=== PATIENT | female | born 1935 | race Caucasian/White ===

== ENCOUNTER 2016-07-01 11:35 | Inpatient (IN) | payer MEDICARE, BC ==
--- NOTE | ~2016-07-01 | HP ---
Unit #: [id number] #: [id number] Patient: KRISTI PARKER [id number] [place], [place] [address] [id number] I MR#: [id number] NAME: KRISTI PARKER. ROOM: 99771 Age: 80 Sex: F Admission Date: 07/01/2016 : 1935 Attending Physician: Wendy Mendoza M.D. Primary Care Physician: Esther Gross M.D. HISTORY AND PHYSICAL CHIEF COMPLAINT Syncope. HISTORY OF PRESENT ILLNESS The patient is a 80-year-old female with past medical history of hypertension, hyperlipidemia, coronary artery disease, CHF, diabetes, depression, hypothyroidism, renal artery stenosis, dementia, who presented to the emergency department for evaluation of the above. History is obtained from chart review and discussion with ER staff as well as from the patient's who is at the bedside. Additionally, the patient is able to answer some questions. She does have dementia at baseline. The patient was apparently in her usual state of health until the morning of admission when she had a syncopal episode. Her states that she was with her niece, who is her caregiver at times. She had been up and had breakfast, she was using the bathroom. She was found on the floor, she had had loose stool. She was found unresponsive. EMS was called. Blood pressure was initially in the 80s systolic. She was brought to the emergency department for further evaluation. She did receive IV fluids prior to arrival per my discussion with ER staff. Upon arrival in the emergency department, the patient's pulse was 56 and blood pressure was 114/74. A chest x-ray was done and showed nothing acute. Laboratory notable for findings concerning for urinary tract infection. BUN 84 and creatinine 3.6. She is being admitted to [facility] for evaluation and further treatment. PAST MEDICAL HISTORY 1. Admission to [facility] 06/06/2015 for sepsis secondary to E coli urinary tract infection. 2. Congestive heart failure. The patient had an echocardiogram 08/09/2009 that showed an ejection fraction of 20% to 25%. She sees Dr. Ferguson. 3. Coronary artery disease. 4. Hypertension. 5. Hyperlipidemia. 6. Diabetes. 7. Urinary incontinence. 8. Depression. 9. Hypothyroidism. 10. Left renal artery stenosis. PAST SURGICAL HISTORY 1. Appendectomy. 2. Cholecystectomy. Unit #: [id number] #: [id number] Patient: KRISTI PARKER 3. Hysterectomy. 4. Tonsillectomy. 5. Cardiac catheterization 08/10/2009 showed 85% to 90% stenosis of the mid left anterior descending as well as left renal artery 70% stenosis, right renal artery 20% stenosis. ALLERGIES Sulfa. HOME MEDICATIONS Include: 1. Aspirin. 2. Carvedilol. 3. Digoxin. 4. Fenofibrate. 5. Iron. 6. Lasix. 7. Humalog. 8. Hydralazine. 9. Potassium. 10. Levemir. 11. Levothyroxine. 12. Melatonin. 13. Lisinopril. 14. Metformin. 15. Paxil. 16. Simvastatin. Home medications will need to be reviewed and verified. SOCIAL HISTORY The patient lives with her . There is no tobacco or alcohol use. She ambulates with a cane. Code status is a DO NOT RESUSCITATE. FAMILY HISTORY Notable for both parents having coronary artery disease. REVIEW OF SYSTEMS A complete review of systems is negative except as indicated in the HPI. PHYSICAL EXAMINATION VITAL SIGNS: Temperature 97.5, pulse 56, respirations 16, blood pressure 114/44, oxygen saturation 99% on room air. GENERAL: The patient is a female who is awake and alert. HEENT: Head is atraumatic. Mucous membranes are dry. NECK: Supple. Trachea is midline. LUNGS: Clear to auscultation bilaterally with no increased work of breathing. HEART: Regular rate and rhythm. ABDOMEN: Soft, nontender. Bowel sounds present in all four quadrants. EXTREMITIES: Nontender with no pedal edema. NEUROLOGIC: Patient is awake and alert. She is oriented to person and place. She is at baseline per family. She is moving all extremities. PSYCHIATRIC: Patient has a flat affect. SKIN: Generally pale. DIAGNOSTIC STUDIES LABORATORY: Troponin less than 0.05. Complete blood count notable for Unit #: [id number] #: [id number] Patient: KRISTI PARKER hemoglobin 10.7, hematocrit 32.5. INR 1.2. Basic metabolic panel notable for BUN 84, creatinine 3.6. Urinalysis notable for 2+ leukocyte esterase, 10-25 wbc's, 4+ bacteria, occasional squamous cells. IMAGING: Chest x-ray shows no acute abnormality. CARDIOVASCULAR: EKG shows sinus bradycardia with premature atrial complexes and a rate of 56 beats per minute. ASSESSMENT The patient is a 80-year-old female with: 1. Syncope. 2. Acute kidney injury. The patient's creatinine was 0.7 on 06/06/2015, it is 3.6 today. The patient is on several medications that could be contributing including lisinopril, Lasix, and metformin. Additionally, she has been having loose stool intermittently for the past five to six months. She has also had decreased appetite which could be contributing as well. 3. Diarrhea. 4. Urinary tract infection. 5. Chronic anemia. 6. Hypertension. 7. Hyperlipidemia. 8. Coronary artery disease. 9. Congestive heart failure with ejection fraction as noted above. 10. Diabetes. 11. Depression. 12. Hypothyroidism. 13. History of left renal artery stenosis. 14. Dementia. PLAN 1. Admit to intermediate level. 2. Normal saline at 75 mL per hour. 3. Monitor blood pressure closely. 4. Serial cardiac enzymes. 5. 2D echo for further evaluation of syncope. 6. Fall precautions with orthostatics each shift. 7. Healthy heart consistent carb diet if passes bedside swallow. 8. Urine sodium, creatinine and eosinophils. 9. Renal ultrasound. 10. Strict I's and O's. 11. Check CPK. 12. Consult Dr. Quiroz regarding acute kidney injury. 13. Hold lisinopril, Lasix and metformin. 14. Stool studies for ova and parasites, C difficile, culture and sensitivity. 15. Blood cultures x2. 16. Urine culture and sensitivity on urine in the lab. 17. Rocephin 1 gram IV daily pending results of urine culture. 18. Hemoglobin A1c. 19. Low-dose sliding scale insulin with Accu-Cheks. 20. Check TSH. 21. Check digoxin level. 22. Neuro checks. 23. SCDs for DVT prophylaxis. 24. Repeat labs in the morning. 25. Additional workup and consultants based on above. Unit #: [id number] #: [id number] Patient: KRISTI PARKER Dictated by Wendy Mendoza M.D. JEFF/ricardo TD: 07/01/2016 16:08 JOB #: [id number] HISTORY AND PHYSICAL Page 1 of 1 X Wendy Mendoza MD HISTORY AND PHYSICAL
--- NOTE | ~2016-07-01 | CO ---
Unit #: [id number] #: [id number] Patient: KRISTI PARKER [id number] [facility]. [place], [place] [address] [id number] I MR#: [id number] NAME: KRISTI PARKER. ROOM: 302 Age: 80 Sex: F Admission Date: 07/01/2016 : 1935 Attending Physician: Ashleigh Jacobson M.D. Primary Care Physician: Esther Gross M.D. Consultation Date: 07/01/2016 CONSULTATION REPORT REASON FOR CONSULTATION Acute kidney injury. HISTORY OF PRESENT ILLNESS Ms. Parker is a 80-year-old female whom we were asked to see today for acute kidney injury. Her admission creatinine was elevated at 3.6. According to family, patient has just not been doing well over the last few months and even worse over the past few days. She has been undergoing a dementia workup by Dr. Gross. More recently, over the last few days, her appetite has been poor, and she also has continued with some chronic loose stools. She is noted to be on an MIKIE inhibitor and a diuretic and has continued to be on these despite her poor appetite. Patient had a syncopal spell at home after apparently walking from one room into the kitchen. She was found to be kind of sprawled out on a kitchen chair but had not fallen. EMS was called, and her blood pressure was only in the 80s upon the EMS presentation there. She was transferred here to [facility] for further care. She is getting fluids and is now more awake and alert. She denies any chest discomfort or shortness of breath. No hematuria. She does not use any NSAIDs. There is no history of kidney stones. PAST MEDICAL HISTORY Her past medical history is significant for cardiomyopathy with an EF of 20%, hypertension, hyperlipidemia, diabetes, depression, dementia, hypothyroidism, left renal artery stenosis in the past, coronary artery disease with stenting, previous urinary tract infections. PAST SURGICAL HISTORY She has had an appendectomy, cholecystectomy, hysterectomy and tonsillectomy. HOME MEDS 1. Baby aspirin daily. 2. Coreg 25 mg twice a day. 3. Digoxin 125 mcg daily. 4. Aricept 5 mg at bedtime. 5. Fenofibrate 160 mg a day. 6. Ferrous sulfate daily. 7. Furosemide 40 mg a day. 8. Humalog 22 units subcu with meals. 9. Hydralazine 25 mg twice a day. 10. Klor-Con 20 mEq daily. 11. Levemir insulin 20 units in the morning, 20 units at bedtime. 12. Levothyroxine 125 mcg a day. Unit #: [id number] #: [id number] Patient: KRISTI PARKER 13. Zestril 40 mg a day. 14. Melatonin at bedtime. 15. Metformin 1,000 mg in the morning and 500 mg in the evening. 16. Paxil 20 mg a day. 17. Simvastatin 20 mg at bedtime. ALLERGIES Sulfa drugs. FAMILY HISTORY Family history is negative for any family history of kidney disease or dialysis. There is a family history of heart disease. SOCIAL HISTORY The patient is . She lives with family. No history of tobacco, alcohol or drug use. REVIEW OF SYSTEMS A complete 12-point review of systems was attempted but made difficult due to the patient's frailty and lethargy. Most of the questions were answered by family. They deny any recent complaints in her of headaches or fevers. No chills. No complaints of sore throat or earache. No chest pain. No palpitations. No cough or hemoptysis. No recent nausea or vomiting. No bright red blood per rectum or melena. No dysuria. No swelling issues. No rashes or itching. No flank pain. No night sweats or hot flashes. No intolerance to heat or cold. No bleeding issues. She does have generalized weakness and is walking with a walker at home. Unless otherwise indicated, the review of systems was not able to be obtained from this frail patient. PHYSICAL EXAMINATION VITAL SIGNS: The patient is afebrile. Pulse 64, respiratory rate 13, blood pressure 132/55. Again, blood pressure was reported to be in the 80s upon EMS arrival at home. GENERAL: This is a 80-year-old white female lying in bed who is arousable, currently in no acute distress. HEENT: Head is atraumatic, normocephalic. Eyes show pale conjunctiva, no scleral icterus. No nasal drainage or nosebleeds. Oropharynx is dry without thrush. NECK: Neck shows no rigidity. CARDIOVASCULAR: Heart is bradycardic and regular with a soft murmur present. No gallop or rub appreciated. RESPIRATORY: Lungs are clear anteriorly with no wheezing or rhonchi. Breathing is nonlabored. ABDOMEN: Abdomen is soft and nontender. Bowel sounds are present without masses. EXTREMITIES: No lower extremity clubbing, cyanosis or pitting edema. SKIN: Skin is dry without rashes. MUSCULOSKELETAL EXAM: No joint effusions noted. No CVA tenderness to palpation. NEUROLOGIC: Exam is nonfocal. She does have generalized weakness. LYMPHATIC EXAM: There is no neck cervical lymphadenopathy. PSYCHIATRIC EXAM: Mood does appear to be depressed with a flat affect. DIAGNOSTIC STUDIES LABS: CPK level was normal at 46. Digoxin level was slightly high at 3. Troponin was negative. UA showed numerous white blood cells with bacteria. Chemistry showed a sodium of 138, potassium 5, chloride 101, Unit #: [id number] #: [id number] Patient: KRISTI PARKER L bicarb 26, glucose 79, BUN 84, creatinine 3.6. INR was 1.2. CBC showed a white count of 9, hemoglobin 10.7, platelet count 266 with no peripheral eosinophilia. Prior creatinine to this one was 0.7 in May 2015. Previous urinalyses have mostly been negative for any significant blood or protein. IMAGING: Chest x-ray showed no edema or pneumonia. Distant CT scan of the abdomen in June 2011 - Kidneys were unremarkable at that time. ASSESSMENT AND PLAN 1. Acute kidney injury. This appears to be prerenal in nature from hypotension with her syncopal spell. She is also on a diuretic with poor intake and would have altered renal compensation on her MIKIE inhibitor. We will hold her Lasix and her lisinopril and continue hydration overnight. Ultrasound has been ordered. Hopefully, her kidney function will recover briskly and we will not need to pursue any dialysis. 2. Hypotension. Patient's blood pressure has already improved with fluid bolus, and we will continue fluids overnight. 3. Urinary tract infection. Rocephin has been started, and we will follow up final urine culture. 4. History of cardiomyopathy with an EF of 20%. Patient looks very well compensated, and we will hold her diuretic, as well as her MIKIE inhibitor, and monitor her volume status daily. 5. Chronic diarrhea. This may be contributing to her dehydration. 6. Dementia. 7. Diabetes. 8. History of coronary artery disease with stenting. 9. Digoxin toxicity. We will continue fluids, and hopefully, with improved kidney function, her digoxin will clear out over the next 24 hours. I will be stopping all potassium supplementation, and we will, of course, stop her digoxin. I would like thank Dr. Mendoza for this consult and the opportunity to participate in the evaluation and care of Ms. Parker. Dictated by... Chava Bernard Jr., [place]el[place]. VALENTINA/pola TD: 07/02/2016 08:43 JOB #: [id number] CONSULTATION REPORT Page 1 of 1 X Chava Bernard MD X CONSULTATION REPORT
--- NOTE | ~2016-07-01 | US77 ---
[facility] A Service of [facility] RADIOLOGY TEXT RESULTS PATIENT: KRISTI PARKER LOCATION: [facility] - : 37 UNIT #: [id number] AGE: [address]: Wendy Mendoza MD SEX: F ORDER DR: [id number] [facility] [address] [place], [place] [address] [id number] I MR#: [id number] Acc #: [id number] NAME: KRISTI PARKER : 1935 SEX: F STUDY DATE/TIME: 07/01/2016 16:49 UNIT: [address] ROOM: [facility] STUDY DESCRIPTION: US Kidney Bilateral Complete Attending Physician: Wendy Mendoza M.D. Ordering Physician: Wendy Mendoza M.D. Primary Care Physician: Esther Gross M.D. MEDICAL IMAGING REPORT This report is preliminary unless electronic signature is present EXAM Bilateral renal ultrasound. HISTORY Acute renal insufficiency. FINDINGS Ultrasound examination of both kidneys demonstrates no renal mass or hydronephrosis. No focal renal atrophy or perinephric fluid collection. The right kidney measures approximately 10.2 cm in length and the left kidney measures approximately 10.3 cm in length. Survey of the urinary bladder is unremarkable. IMPRESSION Normal ultrasound examination of both kidneys. Dictated by... Andrea Velez M.D. THIS IS AN ELECTRONICALLY VERIFIED REPORT Andrea Velez M.D. at 07/01/2016 11:16 PM LORRAINE/juan TD: 07/01/2016 22:20 JOB #: [id number] MEDICAL IMAGING REPORT Page 1 of 1 COPY
--- NOTE | ~2016-07-01 | CR72 ---
[facility] A Service of [facility] RADIOLOGY TEXT RESULTS PATIENT: KRISTI PARKER LOCATION: [facility] : 37 UNIT #: [id number] AGE: [address]: Queta Tapia MD SEX: F ORDER DR: [id number] [facility] [address] [place], [place] [address] [id number] MR#: [id number] Acc #: [id number] NAME: KRISTI PARKER : 1935 SEX: F STUDY DATE/TIME: 07/01/2016 UNIT: [facility] ROOM: STUDY DESCRIPTION: CR Chest Single View Portable Attending Physician: Queta Tapia M.D. Ordering Physician: Ed Brady Velazco M.D. Primary Care Physician: Esther Gross M.D. MEDICAL IMAGING REPORT This report is preliminary unless electronic signature is present EXAM Chest portable 07/01/2016 1217 hours HISTORY 80-year-old woman with history of hypertension complaining of syncope today. Weakness. COMPARISON Chest x-ray 06/03/2015 FINDINGS Portable upright chest demonstrates mild cardiomegaly decreased from 06/03/2015. The aorta is within normal limits. There is mild prominence of the pulmonary vasculature although the pulmonary arteries appeared decreased from 06/03/2015. There is mild elevation of the right hemidiaphragm unchanged. The lungs are clear and there are no effusions. IMPRESSION Heart size is at the upper limits of normal with mildly tortuous aorta. There is mild pulmonary vascular prominence without edema, pneumonia or effusion. The heart size and vascular changes are clearly improved from 06/03/2015. Dictated by... Maribell Xiong M.D. THIS IS AN ELECTRONICALLY VERIFIED REPORT Maribell Xiong M.D. at 07/01/2016 2:29 PM Meagan TD: 07/01/2016 13:44 [facility] A Service [facility] RADIOLOGY TEXT RESULTS PATIENT: KRISTI PARKER LOCATION: [facility] : 39 UNIT #: [id number] AGE: [address]: Queta Tapia MD SEX: F ORDER DR: KAUSHIK #: [id number] MEDICAL IMAGING REPORT Page 1 of 1 COPY
--- NOTE | ~2016-07-01 | EKG ---
PATIENT: KRISTI PARKER UNIT #: [id number] Ventricular Rate: 56 BPM Atrial Rate: 56 BPM P-R Interval: 184 ms QRS Duration: 152 ms Q-T Interval: 428 ms QTC Calculation(Bezet): 413 ms P [place]: 73 degrees Calculated R [place]: 93 degrees Calculated T [place]: 5 degrees Diagnosis Line: Sinus bradycardia with Premature atrial complexes Diagnosis Line: Right bundle branch block with repolarization Diagnosis Line: abnormality Diagnosis Line: Abnormal ECG Diagnosis Line: When compared with ECG of 03-JUN-2015 13:51, Diagnosis Line: Fusion complexes are no longer Present Diagnosis Line: Vent. rate has decreased BY 42 BPM Diagnosis Line: QRS axis Shifted left Diagnosis Line: T wave inversion less evident in Inferior leads Diagnosis Line: T wave inversion less evident in Anterior leads Diagnosis Line: QT has shortened Diagnosis Line: Confirmed by MIGUEL IZAGUIRRE MD ([id number]) on 07/02/2016 Diagnosis Line: 10:02:10 AM INTERPRETING MD: ZINA CASTAÑEDA
--- NOTE | ~2016-07-01 | DS ---
Unit #: [id number] #: [id number] Patient: KRISTI PARKER [id number] [address] [address] [id number] I MR#: [id number] NAME: KRISTI PARKER ROOM: 302 Age: 80 Sex: F Admission Date: 07/03/2016 : 1935 Discharge Date: Attending Physician: Ashleigh Jacobson M.D. Primary Care Physician: Esther Gross M.D. DISCHARGE SUMMARY DISCHARGE DIAGNOSES 1. Acute kidney injury. 2. Syncope. 3. Escherichia coli urinary tract infection. 4. Chronic iron deficiency anemia. 5. Hypertension, uncontrolled. 6. Digoxin toxicity. 7. History of falls. 8. Hypothyroidism. 9. Chronic diarrhea. 10. Chronic systolic heart failure. 11. Abnormal thyroid-stimulating hormone with hypothyroidism history. 12. Diabetes mellitus type 2. 13. History of Alzheimer dementia. 14. Coronary artery disease. 15. Hyperlipidemia. 16. History of depression. CONSULTATION Dr. Bernard. PROCEDURES None. DIAGNOSTIC STUDIES LABORATORY: Sodium 142, potassium 4.3, creatinine 1.4, glucose 100. Urine culture is growing E. coli. Blood cultures negative. WBC 9.8, hemoglobin 9.8, platelets 219. IMAGING: Ultrasound of the kidneys shows normal. ALLERGIES Sulfa. DISCHARGE MEDICATIONS 1. Paxil 20 mg p.o. daily. 2. Coreg 25 mg p.o. b.i.d. 3. Aricept 5 mg daily. 4. Fenofibrate 160 mg p.o. daily. 5. Zocor 20 mg daily. 6. Hydralazine 50 mg three times daily. 7. Levemir 10 units subcu 8 a.m. 8. Levemir 10 units subcu 10 p.m. 9. Ferrous sulfate 325 mg p.o. daily. Unit #: [id number] #: [id number] Patient: KRISTI PARKER 10. Aspirin 81 mg daily. 11. Levothyroxine 125 mcg p.o. daily. HOSPITALIZATION COURSE This is a 80 year old admitted because of syncope. Acute kidney injury secondary to prerenal and also on diuretics, Lasix and lisinopril which have been discontinued. Currently, creatinine is normalized. Syncope most likely secondary to low blood pressure on admission secondary to hypovolemic shock. The patient received IV fluids. Currently, syncope resolved. She is able to ambulate. Escherichia coli urinary tract infection. The patient received Rocephin, completed three days. History of chronic systolic heart failure, ejection fraction 20%, stable. Chronic diarrhea. This may be contributing for dehydration. Currently, stable. Alzheimer dementia, stable. Diabetes mellitus type 2. Her insulin has been adjusted. Digoxin toxicity. The patient received IV fluids. Digoxin has been discontinued. Currently, level normalized. The patient will be discharged home. Follow with family physician in one week's time for uncontrolled hypertension. Discharge time taken is 32 minutes. Dictated by... Elly Dugan/nusrat TD: 07/04/2016 11:30 JOB #: [id number] DISCHARGE SUMMARY Page 1 of 1 X Ashleigh Jacobson MD X DISCHARGE SUMMARY
[~2016-07-01 11:35] MED LIST: ALDACTONE25 MG PO; APIDRA (NF100 UNITS/ SUBQ; APRESOLINE PO; ASPIRIN81 M1 PO; ASPIRIN81 M2 PO; CARVEDILOL25 MG PO; CLOPIDOGREL75 MG PO; COREG PO; CYMBALTA PO; CYMBALTA30 MG PO; DIGOXIN125 MCG PO; DIOVAN PO; DULCOLAX5 MG PO; FENOFIBRATE160 MG PO; FUROSEMIDE40 MG PO; GABAPENTIN300 M2 PO; GLUCOPHAGE500 M1 PO; GLUCOPHAGE500 MG PO; GOLYTELY SOLU4000 ML PO; HUMALOG100 U/M2 SUBQ; HYDRALAZINE HCL25 MG PO; HYDROCODON-ACE1 EAC7 PO; IMDUR PO; IMDUR-ER60 M1 PO; IMDUR-ER60 MG PO; KCL PO; KEFLEX500 M1 PO; LANOXICAPS0.1 M1 PO; LEVEMIR SUBQ; LEVEMIR100 U/ML SUBQ; LEVEMIR100 UNITS/ SUBQ; LOFIBRA200 MG PO; LORTAB 10-5001 EACH PO; MAG-OX 400400 MG PO; METFORMIN HCL500 M1 PO; METFORMIN PO; PANTOPRAZOLE SO40 MG PO; PAROXETINE HCL20 M1 PO; PHENERGAN25 MG PO; PLAVIX PO; PRINIVIL40 MG PO; PROTONIX PO; SIMVASTATIN20 MG PO; SYNTHROID PO; SYNTHROID0.1 MG PO; SYNTHROID125 PO; TRILIPIX135 MG PO; VICODIN PO; ZESTRIL40 MG PO; ZOCOR PO; ZOCOR20 MG PO; ZOFRAN ODT4 MG; ZOFRAN ODT4 MG SL
[2016-07-01 12:39] LABS: POC - CKMB <1.0 ng/mL (0.0-7.9); POC - TROPONIN <0.05 ng/mL (<=0.05)
[2016-07-01 12:46] LABS: BASOPHIL% 0.3 % (0-2.5); EOSINOPHIL# 0.1 X10e3 (0-0.7); EOSINOPHIL% 1.4 % (0.0-7.0); HEMATOCRIT 32.5 % (35.0-45.0); HEMOGLOBIN 10.7 gm/dL (12.0-16.0); LYMPHOCYTE# 1.7 X10e3 (1.0-3.5); LYMPHOCYTE% 18.8 % (17.0-45.0); MEAN CELL VOLUME 88.8 FL (83-96); MEAN CORPUSCULAR HEMOGLOBIN 29.3 PG (28-34); MEAN PLATELET VOLUME 9.1 FL (6.5-11.5); MONOCYTE# 0.9 X10e3 (0-1.0); MONOCYTE% 9.7 % (3.0-12.0); NEUTROPHIL# 6.3 X10e3 (1.5-7.1); NEUTROPHIL% 69.8 % (40-75); PLATELET COUNT 266 X10e3 (140-420); RED BLOOD COUNT 3.66 X10e (3.90-5.30); RED CELL DISTRIBUTION WIDTH 13.1 % (11.0-15.5); WHITE BLOOD COUNT 9.1 X10e3 (4.0-10.5)
[2016-07-01 12:50] LABS: DIFF IND NO
[2016-07-01 13:04] LABS: URINE SOURCE CLEAN CATCH
[2016-07-01 13:09] LABS: INR 1.2; PARTIAL THROMBOPLASTIN TIME 24.2 SECONDS (23.5-31.3); PROTHROMBIN TIME (PATIENT) 12.6 SECONDS (9.6-11.5)
[2016-07-01 13:10] LABS: URINE APPEARANCE CLOUDY; URINE BILIRUBIN NEG (NEG); URINE BLOOD TRACE (NEG); URINE COLOR YELLOW; URINE GLUCOSE NEG (NEG); URINE KETONE NEG (NEG); URINE LEUKOCYTE ESTERASE 2+ (NEG); URINE NITRATE NEG (NEG); URINE PROTEIN NEG (NEG); URINE SPECIFIC GRAVITY 1.009 (1.003-1.035); URINE UROBILINOGEN 0.2 MG/DL (NEG)
[2016-07-01 13:12] LABS: CULTURE INDICATED? YES; URINE BACTERIA AUWI 4+ (NEGATIVE); URINE SQUAMOUS EPITHELIAL CELL OCC /[HPF]
[2016-07-01 13:16] LABS: BUN/CREATININE RATIO 23.33; CALCIUM SERUM 9.2 mg/dL (8.4-10.2); CREATININE SERUM 3.6 mg/dL (0.6-1.4); GLOM FILT RATE Estimated 11.5 mL/min (>60)
[2016-07-01 14:28] LABS: POC - CKMB 1.4 ng/mL (0.0-7.9); POC - TROPONIN <0.05 ng/mL (<=0.05)
[2016-07-01] MEDS ORDERED: CARVEDILOL25 MG PO (16:17)
[2016-07-01] MEDS ORDERED: ASPIRIN81 MG PO (16:17)
[2016-07-01] MEDS ORDERED: ARICEPT5 M1 PO (16:18)
[2016-07-01] MEDS ORDERED: DIGOX125 MCG PO (16:18)
[2016-07-01] MEDS ORDERED: FERROUS SULFAT325 MG PO (16:19)
[2016-07-01] MEDS ORDERED: FENOFIBRATE160 MG PO (16:19)
[2016-07-01] MEDS ORDERED: FUROSEMIDE40 MG PO (16:19)
[2016-07-01] MEDS ORDERED: HUMALOG100 UNIT/1 SUBQ (16:21)
[2016-07-01] MEDS ORDERED: KLOR-CON SPRIN10 MEQ PO (16:22)
[2016-07-01] MEDS ORDERED: HYDRALAZINE HCL25 MG PO (16:22)
[2016-07-01] MEDS ORDERED: LEVEMIR100 UNITS/ SUBQ ×2 (16:23)
[2016-07-01] MEDS ORDERED: MELATIN3 MG PO (16:24)
[2016-07-01] MEDS ORDERED: LEVOXYL125 MC1 PO (16:24)
[2016-07-01] MEDS ORDERED: ZESTRIL40 MG PO (16:24)
[2016-07-01] MEDS ORDERED: GLUMETZA1000 MG PO (16:25)
[2016-07-01] MEDS ORDERED: METFORMIN HCL500 M2 PO (16:25)
[2016-07-01] MEDS ORDERED: PAROXETINE HCL20 M1 PO (16:26)
[2016-07-01] MEDS ORDERED: SIMVASTATIN20 MG PO (16:26)
[2016-07-01 19:19] LABS: CK TOTAL 49 IU/L (26-140)
[2016-07-02 00:44] LABS: HEMATOCRIT 28.7 % (35.0-45.0); HEMOGLOBIN 9.6 gm/dL (12.0-16.0); MEAN CELL VOLUME 88.4 FL (83-96); MEAN CORPUSCULAR HEMOGLOBIN 29.5 PG (28-34); MEAN CORPUSCULAR HGB CONC 33.4 g/dL (30-36); RED BLOOD COUNT 3.25 X10e (3.90-5.30); RED CELL DISTRIBUTION WIDTH 12.9 % (11.0-15.5); WHITE BLOOD COUNT 10.4 X10e3 (4.0-10.5)
[2016-07-02 01:03] LABS: ALBUMIN SERUM 3.3 g/dL (3.5-5.0); BILIRUBIN,TOTAL 0.3 mg/dL (0.2-2.0); BUN/CREATININE RATIO 27.85; CALCIUM SERUM 8.7 mg/dL (8.4-10.2); CREATININE SERUM 2.8 mg/dL (0.6-1.4); GLOM FILT RATE Estimated 15.5 mL/min (>60); POTASSIUM 4.7 mmol/L (3.5-5.1); PROTEIN TOTAL SERUM 6.1 g/dL (6.0-8.3)
[2016-07-02 01:09] LABS: DIGOXIN (LANOXIN) 2.4 ng/ml (1.0-2.0)
[2016-07-02 09:50] LABS: CREATININE,RANDOM URINE 90 mg/dL; SODIUM URINE RANDOM 29 mmol/L
[2016-07-03 04:58] LABS: BUN/CREATININE RATIO 29.41; CALCIUM SERUM 9.1 mg/dL (8.4-10.2); CREATININE SERUM 1.7 mg/dL (0.6-1.4); DIGOXIN (LANOXIN) 1.6 ng/ml (1.0-2.0); GLOM FILT RATE Estimated 28.4 mL/min (>60); POTASSIUM 4.3 mmol/L (3.5-5.1)
[2016-07-03 05:09] LABS: FREE T3 2.3 pg/mL (2.5-3.9)
[2016-07-03 05:11] LABS: FREE THYROXIN (T4) 1.39 ng/dL (0.58-1.64)
[2016-07-04 06:12] LABS: BASOPHIL# 0.1 X10e3 (0-0.3); BASOPHIL% 0.6 % (0-2.5); EOSINOPHIL# 0.2 X10e3 (0-0.7); EOSINOPHIL% 2.5 % (0.0-7.0); HEMATOCRIT 30.4 % (35.0-45.0); HEMOGLOBIN 9.8 gm/dL (12.0-16.0); LYMPHOCYTE# 1.8 X10e3 (1.0-3.5); LYMPHOCYTE% 19.6 % (17.0-45.0); MEAN CELL VOLUME 90.1 FL (83-96); MEAN CORPUSCULAR HGB CONC 32.2 g/dL (30-36); MEAN PLATELET VOLUME 8.8 FL (6.5-11.5); MONOCYTE# 0.9 X10e3 (0-1.0); MONOCYTE% 9.8 % (3.0-12.0); NEUTROPHIL# 6.3 X10e3 (1.5-7.1); NEUTROPHIL% 67.5 % (40-75); PLATELET COUNT 219 X10e3 (140-420); RED BLOOD COUNT 3.37 X10e (3.90-5.30); RED CELL DISTRIBUTION WIDTH 12.9 % (11.0-15.5); WHITE BLOOD COUNT 9.3 X10e3 (4.0-10.5)
[2016-07-04 06:29] LABS: DIFF IND NO
[2016-07-04 09:00] LABS: BUN/CREATININE RATIO 20.71; CALCIUM SERUM 9.1 mg/dL (8.4-10.2); CREATININE SERUM 1.4 mg/dL (0.6-1.4); GLOM FILT RATE Estimated 35.9 mL/min (>60); POTASSIUM 4.3 mmol/L (3.5-5.1)
[2016-07-04] MEDS ORDERED: LEVEMIR100 UNITS/ INJ ×2 (12:10→12:11)
[2016-07-04] MEDS ORDERED: LEVOTHYROXINE100 MCG PO (12:12)
== END 2016-07-04 13:09 | disposition home or self-care (01) | DRG 682 ==
LOC: CED 11:35 → CEDOF 12:57 → CED 12:57 → C3A PCU 15:30 → CEDOF 15:30 → C3A PCU 15:52 → CED 15:52 → CEDOF 15:52 → C3A PCU 18:07 → CEDOF 18:07 → C3A PCU 07-02 07:38 → CEDOF 07-03 12:57 → C3A PCU 07-03 12:57
PROVIDERS: Emergency Medicine; Family Medicine; Internal Medicine; Internal Medicine Nephrology
DX: N17.9 Acute kidney failure, unspecified (principal); R57.1 Hypovolemic shock; N39.0 Urinary tract infection, site not specified; I50.22 Chronic systolic (congestive) heart failure; B96.20 Unspecified Escherichia coli [E. coli] as the cause of diseases classified elsewhere; I10 Essential (primary) hypertension; E11.9 Type 2 diabetes mellitus without complications; D50.9 Iron deficiency anemia, unspecified; T46.0X5A Adverse effect of cardiac-stimulant glycosides and drugs of similar action, initial encounter; Z91.81 History of falling; E03.9 Hypothyroidism, unspecified; K52.9 Noninfective gastroenteritis and colitis, unspecified; G30.9 Alzheimer's disease, unspecified; F02.80 Dementia in other diseases classified elsewhere, unspecified severity, without behavioral disturbance, psychotic disturbance, mood disturbance, and anxiety; I25.10 Atherosclerotic heart disease of native coronary artery without angina pectoris; E78.5 Hyperlipidemia, unspecified; F32.9 Major depressive disorder, single episode, unspecified; Z79.84 Long term (current) use of oral hypoglycemic drugs; Z95.5 Presence of coronary angioplasty implant and graft
CPT/HCPCS: 36415; 71010; 76770; 80048; 80053; 80162; 81003; 82550; 82553; 82570; 82947; 83036; 84300; 84439; 84443; 84481; 84484; 85025; 85027; 85610; 85730; 87040; 87086; 87088; 87186; 89190; 93005; 93306; 97163; 97166; 99285; G8978-GP; G8979-GP; G8980-GP; G8987-GO; G8988-GO; G8989-GO; J0360; J0696; J1815